=== PATIENT | female | born 1990 | race Caucasian/White ===

== ENCOUNTER 2020-01-08 15:48 | Emergency (ER) | payer MEDICAID, SELFPAY ==
[2020-01-08 16:04] VITALS: BP 0/0; PULSE 87; RESP 20; TEMP 36.8; O2SAT 98
== END 2020-01-08 16:05 | disposition left against medical advice (07) ==
LOC: UTC 16:00
PROVIDERS: Emergency Provider Nurse Practitioner
DX: Z53.21 Procedure and treatment not carried out due to patient leaving prior to being seen by health care provider (principal)

== ENCOUNTER 2020-08-22 19:02 | Emergency (ER) | payer BC, MEDICAID, SELFPAY ==
[2020-08-22 19:10] VITALS: BP 123/81; PULSE 77; RESP 19; TEMP 37.1; O2SAT 99; BMI 32.3
--- NOTE | 2020-08-22 19:27 | HMH.EDUTC ---
[facility] Disposition Clinical Impression: Encounter for laboratory testing for COVID-19 virus URI (upper respiratory infection) Qualifiers: URI type: unspecified URI Qualified Code(s): J06.9 - Acute upper respiratory infection, unspecified Disposition: Home, Self-Care Condition on Discharge: Good Instructions: DI for COVID-19 (Suspected or Confirmed ), Preventing the Spread of Coronavirus Discharge Instructions, Coronavirus Disease 2018, DI for Sinusitis, Sore Throat, Azithromycin, Methylprednisolone Additional Instructions: *Monitor Temp, Over the counter Motrin or Tylenol as directed/as needed Tylenol every 4 hours and Motrin every 6 hours (as long as your family doctor has told you that you can take it) for fever or pain. and straight to ER if unable to lower temp less than 101.0 after medication given *Warm salt water gargles may help to soothe the throat *Throat Lozenges *Warm fluids like tea with honey may help to soothe the throat *Sleep elevated *Humidifier/Vaporizer Follow up IMMEDIATELY for new or worsening symptoms or no Noticeable improvement over the next 48-72 hours. 911 for difficulty breathing or swallowing You were tested for today for COVID19 your test result should be back in the next 24-48 hours, you may call to the [facility] to see if your test results are back in the next 48 hours [phone] [facility] hours are 9am-9pm You was given a handout with instructions for Self Quarantine and Self isolation for while you wait on test results and what to do if they are positive If you are positive the Health Dept will be contacting you also Prescriptions: methylPREDNISolone [Medrol 4mg tab] 4 mg PO DIRECTED #21 tab Transmission Status: Pending to [facility] # Azithromycin [Z-Toi 250mg Tab*] 250 mg PO UD DOSE PK #6 tab Transmission Status: Pending to [facility] # Referrals: PCP,No [Primary Care Provider] - As needed Forms: Work/School Release Time of Disposition: 19:35 Medical Decision Making - Sundeep Inquiry Pt receiving controlled substance: No Sundeep was queried for this patient: No Vital Signs: 08/22/20 19:10 Temperature 98.8 F Temperature Source Oral Pulse Rate [Right Brachial] 77 Respiratory Rate 19 Blood Pressure [Right Arm] 123/81 Blood Pressure Mean [Right Arm] 95 Blood Pressure Source [Right Arm] Automatic Cuff Blood Pressure Position [Right Arm] Sitting 02 Sat by Pulse Oximetry 99 Oxygen Delivery Method Room Air Orders (Tests/Meds): ORDERS Category Date Time Status Covid-19 Nasal PCR Sendout [facility] Stat Lab 08/22/20 19:15 Received [facility] HPI - General Stated complaint: covid test Time Seen by Provider: 08/22/20 19:27 Mode of Arrival: Ambulatory Source of Information: Patient Limitations: No Limitations Description of Symptoms (Recalled from Triage Doc. by RN): PATIENT REQUESTING COVID TEST D/T EXPOSURE; C/O HEADACHE, CONGESTION AND COUGH X 2 DAYS HEENT Symptoms (Recalled from RN notes): Yes Resp Symptoms (Recalled from RN notes): Yes Skin Symptoms (Recalled from RN notes): No MS Symptoms (Recalled from RN notes): No Functional Status (Recalled from RN notes): WNL - History of Present Illness Provider Complaint: Patient state that she was recently around someone that has since tested positive for COVID States that she has been having sinus pain and pressure along with throat irritation and hurts at times when she swallows States that she was concerned she may have a sinus infection or COVID - Related Data Previous Rx's Medication Instructions Recorded Azithromycin [Z-Toi 250mg Tab*] 250 mg PO UD DOSE PK #6 tab 08/22/20 methylPREDNISolone [Medrol 4mg 4 mg PO DIRECTED #21 tab 08/22/20 tab] Allergies Allergy/AdvReac Type Severity Reaction Status Date / Time No Known Allergies Allergy Verified 08/22/20 19:19 - Worker's Comp Is this a Worker's Comp case?: No [facility] History - Hepatitis A Screen Drug use history?: N
[2020-08-22 19:35] VITALS: BP 123/81; PULSE 77; RESP 19; TEMP 37.1; O2SAT 99
[2020-08-24 13:44] LABS: Covid-19 Nasal PCR Sendout P&C POSITIVE
--- NOTE | 2020-08-24 15:12 | PC.NURSE ---
patient informed of positive covid results
== END 2020-08-22 19:40 | disposition home or self-care (01) ==
PROVIDERS: Emergency Provider Nurse Practitioner
DX: U07.1 COVID-19 (principal)
CPT/HCPCS: 99201; U0004

== ENCOUNTER 2022-10-10 16:00 | Outpatient (RCR) | payer BC, MEDICAID, SELFPAY | END 2022-10-10 16:05 | disposition home or self-care (01) | LOC: PT 16:00 | PROVIDERS: Visit Provider Orthopaedic Surgery Adult Reconstructive Orthopaedic Surgery | DX: S83.511A Sprain of anterior cruciate ligament of right knee, initial encounter (principal) | CPT/HCPCS: 97110; 97163; 97530 ==